=== PATIENT | female | born 1970 | race Caucasian/White ===

== ENCOUNTER → 2023-03-28 13:22 | Outpatient (REF) | payer BC, SELFPAY | LOC: WDC 13:22 | PROVIDERS: ATTENDING PHYSICIAN Obstetrics & Gynecology; FAMILY PHYSICIAN Internal Medicine | DX: Z12.31 Encounter for screening mammogram for malignant neoplasm of breast (principal) | CPT/HCPCS: 77063; 77067 ==

== ENCOUNTER 2023-10-18 16:28 | Emergency (ER) | payer BC, SELFPAY ==
[2023-10-18 16:32] VITALS: BP 185/98
--- NOTE | 2023-10-18 19:03 | ED.MUSCINJ ---
HPI-Injury
General
Chief Complaint: Musculo-Skeletal Complaint
Source: patient
Exam Limitations: none
Time Seen by Provider: 10/18/23 18:51
History of Present Illness-Injury
Initial Injury comments:
53-year-old female presents complaining of intermittent spasm type pain to the anterior right thigh starting last evening getting worse this afternoon. No injury. No chest pain or shortness of breath. The pain is severe when it starts and fades
away quickly. No fever or rash or tick bites. No numbness. No associated back pain.
Phy Exam
Physical Exam
Physical Exam:
General: Well-appearing female no acute respiratory distress
HEENT: Normocephalic atraumatic
Musculoskeletal exam: No tenderness noted over the anterior right thigh. No swelling or deformity. Compartments are
Neurologic: Straight leg raise negative. Good sensation right leg
Vascular: Soft compartments to the right lower extremity 2+ dorsalis pedis pulse right foot
Injury Course
Orders/Labs/Results
Orders:
Orders
10/18/23 18:59
Venous Doppler Lwr Ext Rt [US Periph Venous LOWER Ext RT] Urgent
Comment:
Reason For Exam: pain in thigh
MDM/Problems Addressed
Differential Diagnosis Includes:
Right thigh pain. Question contusion versus radiculopathy versus muscle spasm. No signs of infection or abscess. Patient concerned about DVT. Will order ultrasound. If negative treat with anti-inflammatories and have her follow-up
*Critical Care Note
Total Time (30-74mins, 75-104mins- exclusive of procedures): Not Applicable
Update Note
Update Note:
Ultrasound negative for DVT. Patient reassured. I suspect muscular spasm versus radiculopathy. Recommended ibuprofen. Stable for discharge
ED Attending Note
-
Portions of this chart may have been created with voice recognition software.� Occasional wrong word or��sound alike� substitutions may have occurred due to the inherent limitations of voice recognition software.
Discharge Plan
Departure
Patient Disposition: Home (Routine Discharge)
Date of Disposition: 10/18/23
Time of Disposition: 21:22
Patient with high blood pressure during this ER visit?: No
Discharge Problem:
Acute thigh pain
Instructions: Muscle and Bone Pain (DC)
Referrals:
Kalpana Borges DO [Family Provider] -
Activity Restrictions/Additional Instructions:
Use ibuprofen or Tylenol if needed for pain. Return if worse otherwise follow-up with your family doctor
Interventions
Interventions:
ED-Musculoskeletal Assessment Last Done: 10/18/23 19:01
Discharge Date and Time
Print Language: [email or web address]
[2023-10-18 21:28] VITALS: BP 126/85
== END 2023-10-18 21:28 | disposition home or self-care (01) ==
LOC: EMR 16:28
PROVIDERS: EMERGENCY PHYSICIAN Emergency Medicine; FAMILY PHYSICIAN Internal Medicine
DX: M79.651 Pain in right thigh (principal)
CPT/HCPCS: 99284; 93971

== ENCOUNTER → 2024-04-14 19:23 | Outpatient (REF) | payer BC, SELFPAY | LOC: WDC 19:23 | PROVIDERS: ATTENDING PHYSICIAN Obstetrics & Gynecology | DX: Z12.31 Encounter for screening mammogram for malignant neoplasm of breast (principal) | CPT/HCPCS: 77063; 77067 ==

== ENCOUNTER → 2024-08-26 15:41 | Outpatient (REF) | payer BC, SELFPAY | LOC: CLAB 15:41 | PROVIDERS: ATTENDING PHYSICIAN Orthopaedic Surgery | DX: R22.32 Localized swelling, mass and lump, left upper limb (principal) | CPT/HCPCS: 88304 ==